=== PATIENT | female | born 1960 | race Caucasian/White ===

== ENCOUNTER → 2019-03-29 | Day surgery (SDC) | payer MEDICARE, OTHER ==
[~2019-03-29] MED LIST: ALPR0.5T PO; ALPR1TAB2 PO; APIX5TAB PO; BUPR150T6 PO; BUPR200T2 PO; LEVO75TA PO; LURA80TA PO; METO-239 PO; OXYC5CAP PO; PROPOFOL 20 ML IV ONE; PROPOFOL 60 ML IV ONE; VORT10TA PO; ZOLP10TA4 PO
[2019-03-29 11:35] VITALS: BP 125/75
--- NOTE | 2019-03-30 17:07 | PATHOLOGY ---
[facility] Accession Number: [id number] . 01 Material submitted: . gastrointestinal site - GASTRIC POLYP BX . 01 Clinical history: . Nausea with vomiting . 02 Diagnosis: Gastric biopsy, gastric nodule: - Mild superficial chronic gastritis. (JPM:misty; 03/30/2019) MBR/03/30/2019 . 02 Comment: Sections of the gastric biopsy reveal segments of gastric body mucosa showing superficial congestion and mild chronic inflammation. There are no adenomatous changes or evidence of malignancy. (JPM:misty; 03/30/2019) . 02 Electronically signed: . Sandip Stokes MD, Pathologist NPI- [id number] . 01 Gross description: . Received in formalin labeled "Celestino, Mariola, gastric nodule, BX," are 2 segments of cabral soft tissue measuring 0.9 x 0.3 x 0.3 cm in aggregate dimensions and ranging from 0.4 to 0.5 cm in maximum dimension. The specimen is submitted entirely in cassette A1. (TSD; 03/29/2019) TOB/TOB . 02 Pathologist provided ICD-10: K29.50 . 02 CPT . 317306 Specimen Comment: A courtesy copy of this report has been sent to Specimen Comment: [phone], . Specimen Comment: Report sent to / DR CALIX Performed at: 01 [facility] [address], [place] [id number] MD Mario Catalan MD Phone: [phone] Performed at: 02 [facility] [address], [place] [id number] MD Sandip Stokes MD Phone: [phone]
== END | disposition home or self-care (01) ==
LOC: SURG 08:31
PROVIDERS: ATTEND Internal Medicine
DX: K29.30 Chronic superficial gastritis without bleeding (principal); K31.89 Other diseases of stomach and duodenum; Z98.84 Bariatric surgery status; Z88.2 Allergy status to sulfonamides; E66.01 Morbid (severe) obesity due to excess calories; I26.99 Other pulmonary embolism without acute cor pulmonale; Z79.01 Long term (current) use of anticoagulants; J45.909 Unspecified asthma, uncomplicated; E03.9 Hypothyroidism, unspecified; Z90.49 Acquired absence of other specified parts of digestive tract; Z90.710 Acquired absence of both cervix and uterus; Z96.653 Presence of artificial knee joint, bilateral; F31.9 Bipolar disorder, unspecified; F41.9 Anxiety disorder, unspecified; M79.7 Fibromyalgia; Z88.5 Allergy status to narcotic agent; G89.4 Chronic pain syndrome; M19.90 Unspecified osteoarthritis, unspecified site; K21.9 Gastro-esophageal reflux disease without esophagitis; I10 Essential (primary) hypertension; Z79.899 Other long term (current) drug therapy; Z68.37 Body mass index [BMI] 37.0-37.9, adult
CPT/HCPCS: 43239; 88305; J2704